=== PATIENT | male | born 1965 | race Two or more races ===

== ENCOUNTER → 2016-08-22 | Outpatient (CLI) | payer OTHER ==
--- NOTE | 2016-08-23 10:43 | Diagnostic Imaging Report ---
Indication: Headache Technique: The head was imaged in a 1.5 Carola magnet. Sequences obtained include sagittal and axial T1 FLAIR, axial T2 fast spin echo with fat saturation, axial T2 FLAIR, diffusion and ADC map. Gadolinium-enhanced axial and coronal T1 FLAIR obtained also. Comparison: None Findings: The size, contour, and configuration of the sulci, ventricles, and basal cisterns appear normal. Campbell-white differentiation is normal. There is no restricted diffusion. There is no mass effect, midline shift, edema, or hemorrhage. There are no abnormal extra-axial or intra-axial fluid collections. The corpus callosum is unremarkable. The brainstem and cerebellum are unremarkable. The sella is unremarkable. Bone marrow signal within the visualized osseous structures appears age appropriate and unremarkable otherwise. There is an old fracture involving the medial right orbital wall. Mucosal thickening noted within the visualized paranasal sinuses. No abnormal enhancement is identified. Impression: Negative MRI brain with and without contrast. Old fracture right medial orbital wall Mild sinusitis
== END | disposition home or self-care (01) ==
LOC: MRI 14:00
DX: R51 Headache (principal); J32.9 Chronic sinusitis, unspecified
CPT/HCPCS: 70553; A9585